=== PATIENT | male | born 2000 | race Caucasian/White ===

== ENCOUNTER 2024-11-19 18:07 | Emergency (ER) | payer SELFPAY ==
[~2024-11-19] VITALS: Ht 175.3 cm; Wt 82.0 kg
[2024-11-19 18:09] VITALS: TEMP 98.2; O2SAT 100
[2024-11-19] MEDS: LIDOCAINE HCL/PF 1% 10 MG/ML 5ML VIAL INFIL ONE (21:00)
[2024-11-19] MEDS: TETANUS, DIPHTHERIA, PERTUSSIS VAC/PF 0.5ML (>10YR OLD) IM ONE (21:12)
[2024-11-19] MEDS: ACETAMINOPHEN 325MG TABLET PO ONE (21:13)
[2024-11-20] MEDS ORDERED: AMOX1TAB16 MT (01:24)
[2024-11-20] MEDS ORDERED: BO1 TP ×2 (01:24→12:43)
[2024-11-20] MEDS ORDERED: IBUP-2029 MT ×2 (01:24→12:43)
[2024-11-20] MEDS: BACITRACIN ZINC OINT UDPKT TOP ONE (01:33)
[2024-11-20] MEDS: AMOXICILLIN/POTASSIUM CLAVULANATE 875/125MG TAB PO ONE (01:33)
[2024-11-20] MEDS: AMOXICILLIN/POTASSIUM CLAVULANATE 875/125MG TAB PO NR (01:38)
[2024-11-20] MEDS: BACITRACIN ZINC OINT UDPKT TOP NR (01:38)
[2024-11-20 01:54] VITALS: BP 115/67; PULSE 75; RESP 18; O2SAT 98
== END 2024-11-20 01:55 | disposition home or self-care (01) ==
LOC: ER 18:07
DX: S01.311A Laceration without foreign body of right ear, initial encounter (principal); F20.9 Schizophrenia, unspecified; X58.XXXA Exposure to other specified factors, initial encounter; Y93.89 Activity, other specified; Y92.89 Other specified places as the place of occurrence of the external cause; Y99.8 Other external cause status
CPT/HCPCS: 70450; 70486; 72125; 90715; 12011; 90471; 99285; J3490; Z7610

== ENCOUNTER 2024-11-20 08:24 | Emergency (ER) | payer MEDICAID ==
[~2024-11-20] VITALS: Ht 172.7 cm; Wt 87.0 kg
[~2024-11-20 08:24] MED LIST: AMOX1TAB16 MT; BO1 TP; IBUP-2029 MT
[2024-11-20 08:39] VITALS: BP 111/66; PULSE 99; RESP 20; TEMP 98.2; O2SAT 100
[2024-11-20] MEDS ORDERED: IBUP-2029 MT (12:43)
[2024-11-20] MEDS ORDERED: BO1 TP (12:43)
== END 2024-11-20 14:29 | disposition home or self-care (01) ==
LOC: ER 08:24
DX: L84 Corns and callosities (principal); Z59.00 Homelessness unspecified; Z86.59 Personal history of other mental and behavioral disorders
CPT/HCPCS: 99282